=== PATIENT | male | born 1965 | race Caucasian/White ===

== ENCOUNTER 2021-04-16 08:05 | Observation (INO) | payer OTHER ==
[2021-04-16] VITALS (9 sets, daily range): BP systolic 130–156; BP diastolic 67–93
[~2021-04-16] VITALS: Ht 182.9 cm; Wt 89.4 kg
[~2021-04-16 08:05] MED LIST: CRESTOR10 MG PO
[2021-04-16] MEDS ORDERED: ASA81BEC PO (08:31)
[2021-04-16 08:47] LABS: HEMATOCRIT 45.4 % (42.0-52.0); HEMOGLOBIN 15.5 gm/dL (14.0-18.0); MCH 31.8 pg (26.0-34.0); MCHC 34.1 g/dL (28.0-37.0); MCV 93.1 fL (80.0-100.0); MPV 8.9 fl. (7.2-11.1); RBC 4.88 mil/uL (4.50-6.00); RDW-CV 13.1 % (10.5-14.5); WBC 5.1 thou/uL (4.0-11.0)
[2021-04-16 08:59] LABS: APTT 25.6 Seconds (25.0-31.3); PROTIME 10.5 Seconds (9.20-11.50)
[2021-04-16 09:22] LABS: ANION GAP 11 mmol/L (7-16); BUN 14 mg/dL (7-18); CALCIUM 8.9 mg/dL (8.5-10.1); CHLORIDE 102 mmol/L (98-107); CO2 26 mmol/L (21-32); CREATININE 1.2 mg/dL (0.6-1.3); GLUCOSE 98 mg/dL (70-99); POTASSIUM 4.2 mmol/L (3.5-5.1); SODIUM 139 mmol/L (136-145)
[2021-04-16 09:26] LABS: ALBUMIN 4.3 g/dL (3.4-5.0); ALKALINE PHOSPHATASE 54 U/L (46-116); CHOLESTEROL 151 mg/dL (<200); HDL CHOLESTEROL 50 mg/dL (>40); LDL CHOLESTEROL 80 mg/dL (<100); SERUM ASSESSMENT Clear; SGOT 25 U/L (15-37); SGPT 36 U/L (30-65); TOTAL BILIRUBIN 0.9 mg/dL (<0.1-1.0); TOTAL PROTEIN 7.3 g/dL (6.4-8.2); TRIGLYCERIDE 105 mg/dL (<150); VLDL 21 mg/dL (<40)
--- NOTE | 2021-04-16 11:45 | NUR ---
POST CATH TO 227 VIA BED TELEPHONE REPORT GIVEN PRIOR ARRIVAL PATIENT ORIENTED TO AND CALL LIGHT DENIES PAIN
--- NOTE | 2021-04-16 12:52 | EKG ---
[place] [address] ELECTROCARDIOGRAM REPORT Name: JOSEIGOR SABA Room: [address] M.R.#: [id number] Admission: 04/16/21 Attend Phys: Isaias Vega Discharge: Date of : 61 Date of Service: 04/16/21 0850 Report #: [id number] THIS REPORT FOR: //name// [facility] Test Date: 2021-04-16 Test Time: 08:50:34 Pat Name: IGOR GARCIA Department: Room: 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 04/16/21 1252 0850 0850 Ac Burgos MD, [facility] /EPI
--- NOTE | 2021-04-16 12:54 | EKG ---
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
[2021-04-17] VITALS: BP 134/83
[2021-04-17 04:14] VITALS: BP 136/89
[2021-04-17 04:28] LABS: HEMATOCRIT 45.6 % (42.0-52.0); HEMOGLOBIN 15.6 gm/dL (14.0-18.0); MCHC 34.1 g/dL (28.0-37.0); MCV 93.9 fL (80.0-100.0); MPV 9.3 fl. (7.2-11.1); RBC 4.86 mil/uL (4.50-6.00); RDW-CV 13.2 % (10.5-14.5); WBC 6.8 thou/uL (4.0-11.0)
[2021-04-17 04:45] LABS: ALBUMIN 4.1 g/dL (3.4-5.0); CALCIUM 8.9 mg/dL (8.5-10.1); CK-MB MASS 2.1 ng/mL (<0.5-3.6); CREATININE 1.3 mg/dL (0.6-1.3); POTASSIUM 3.9 mmol/L (3.5-5.1); TOTAL BILIRUBIN 0.9 mg/dL (<0.1-1.0); TOTAL PROTEIN 7.2 g/dL (6.4-8.2)
--- NOTE | 2021-04-17 08:08 | NUR ---
PT IS ABLE TO COMMUNICATE HIS NEEDS TO STAFF EFFECTIVELY. HE HAS DENIED THE NEED FOR PAIN MEDICATION UP TO THIS TIME. HE HAS DENIED ANY CHEST PAIN OVERNIGHT. RT GROIN CATH SITE DRESSING C/D/I. LIKELY DISCHARGE TODAY.
[2021-04-17] MEDS ORDERED: EFFIENT10 MG PO (08:48)
[2021-04-17] MEDS ORDERED: NITROGLYCERIN0.4 MG SUBLING (08:49)
[2021-04-17 09:00] VITALS: BP 146/79
[2021-04-17 09:49] VITALS: BP 136/89
--- NOTE | 2021-04-17 10:54 | NUR ---
0900- PT HAD BANDAID TO R GROIN,VERY SLIGHT BRUISE NOTED JUST OUTSIDE OF BANDAID.OTHERWISE CDI,PT DENIES PAIN.
--- NOTE | 2021-04-17 11:47 | EKG ---
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 : 1965 Requested By: Markus Feliciano Order Number: [id number] Reading MD: Ac Burgos Measurements Intervals [place] Rate: 62 P: 49 [place]: 180 QRS: 40 QRSD: 117 T: 51 QT: 432 QTc: 439 Interpretive Statements Sinus rhythm Borderline intraventricular conduction delay ST elevation, consider early repolarization Baseline wander in lead(s) V4 Compared to ECG 04/16/2021 11:28:18 Borderline intraventricular conduction delay now present ST (T wave) deviation still present Electronically Signed On 04-17-2021 11:47:39 CDT by Ac Burgos [email or web address] <ELECTRONICALLY SIGNED> By: Ac Burgos MD, [facility] 04/17/21 1147 3 3 Ac Burgos MD, [facility] /EPI
--- NOTE | 2021-04-17 15:22 | CARD ---
[address] [address] CARDIAC CATH REPORT Name: IGOR GARCIA Room: [address] Vandana Sandra#: [id number] Admission: 04/16/21 Attend Phys: Markus Feliciano MD, Discharge: 04/17/21 Date of : 61 Report #: [id number] THIS REPORT FOR: cc: Zach Reyes MD, Cabot L. MD Holkins, John M. 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 Indication Positive stress test Risk Factors Family History, Hypercholesterolemia Admission/Lab Medications/Medications given during procedure Aspirin, Glycoprotein IllbIlla Inhibitors, Thrombin Inhibitors, Platelet Aff. Inhib. Procedure Narrative The patient was brought electively to the Cardiac Catheterization Laboratory and was prepped and draped in a sterile manner. The right wrist was infiltrated with 2% Lidocaine subcutaneous anesthesia. IV conscious sedation was used throughout procedure with appropriate monitoring and was performed in the presence of a registered nurse who was an independent trained observer other than the physician performing the procedure. A 6Fr Boston sheath was inserted into the right femoral artery. Coronary [place] [address] CARDIAC CATH REPORT Name: IGOR GARCIA Room: [address] Vandana Sandra#: [id number] Admission: 04/16/21 Attend Phys: Markus Feliciano MD, Discharge: 04/17/21 Date of : 61 Report #: [id number] coronary diagnostic catheters. The right coronary system was accessed and visualized with a Diagnostic catheter. The left coronary system was accessed and visualized with a Diagnostic catheter. The left ventricle was accessed and visualized with a Diagnostic catheter. Left ventricular/Aortic Valve gradient assessed via catheter pullback. Pre-demployment femoral angiogram was performed . Closure device was deployed with a 6 Fr Angioseal. Intraoperative Conscious Sedation Sedation start time: 9:42 Case end Time: 10:29 Fentanyl 50.0 mcg Versed 3.0 mg Diagnostic Cath Left Main 0% narrowing LAD 30% proximal narrowing with 80% tubular mid vessel stenosis Circumflex 20% mid vessel narrowing Right Coronary Large dominant vessel with 30% mid vessel narrowing Left Ventriculography The left ventricle is normal in size with normal contractility. The left ventricular ejection fraction is estimated to be 60%. Left ventricular wall motion abnormalities are not present. There is no mitral insufficiency. Hemodynamics The aortic pressure is 149/67 mmHg with a mean of 98 mmHg. The left ventricular pressure is 140/2/14 mmHg with a mean of mmHg. The left ventricular end diastolic pressure is 13 mmHg. There was no gradient across the aortic valve upon pullback. PCI Technique Lesion Anticoagulation was achieved with Angiomax. Percutaneous coronary intervention was performed on the mid LAD artery segment. The lesion stenosis prior to intervention was 80% with JEANETH 3 flow. A 6Fr XB LAD 3.5 Guide Catheter was used to engage the left main ostium. A [employer] Interventional Guidewire was used to cross the lesion. BALLOON DILATION A Balloon catheter Trex RX 2.5x12 was inserted and inflated up to 10atm for 10seconds. Additional Inflation: 12atm for 11seconds. Additional Inflation: 15atm for 9seconds. [place] [address] CARDIAC CATH REPORT Name: IGOR GARCIA [address] [id number] Admission: 04/16/21 Attend Phys: Markus Feliciano MD, Discharge: 04/17/21 Date of : 61 Report #: [id number] STENT DEPLOYMENT A drug eluting stent [place] 2.75.30, 2.5x8 [place] was inserted and inflated up to 12atm for 12seconds. Additional Inflation: 15atm for 9seconds. POST STENT DEPLOYMENT BALLOON DILATION A Balloon catheter NC Trek 2.75x12 was inserted and inflated up to 12atm for 9seconds. Additional Inflation: 14atm for 7seconds. Additional Inflation: 16atm for 7seconds. 17atm for 11 seconds Final angiography reveals 0 % stenosis with JEANETH 3 flow. STENT DEPLOYMENT A stent was inserted and inflated up to 12atm for 12seconds. Conclusion 1. Significant coronary artery disease characterized by the following: A 30% proximal and 80% tubular mid LAD stenosis B 20% mid circumflex narrowing C dominant right coronary artery with 30% mid vessel narrowing 2. normal left-sided hemodynamic study 3. Normal left ventricular systolic function, estimated ejection fraction being 60% 4 successful PCI with deployment of sequential drug-eluting stents at the site of 80% tubular mid LAD stenosis with 0% residual narrowing and JEANETH-3 flow to the distal vessel Recommendations Cardiac Risk Reduction Program Aggressive Medical Therapy Medications Administered Aspirin (any) [place] [address] CARDIAC CATH REPORT Name: IGOR GARCIA [address]#: [id number] Admission: 04/16/21 Attend Phys: Markus Feliciano MD, Discharge: 04/17/21 Date of : 61 Report #: [id number] Diagnostic Cath Approved by: Markus Feliciano MD Date/Time: 04/17/2021 15:20:30 <ELECTRONICALLY SIGNED> By: Markus Feliciano MD, [facility] 04/17/21 1522 1522 1522Joheron Feliciano MD, [facility] /INF
--- NOTE | 2021-04-18 16:17 | D ---
[address] [address] DISCHARGE SUMMARY Name: IGOR GARCIA Room: [address] Vandana Sandra#: [id number] Admission: 04/16/21 Attend Phys: Markus Feliciano MD, Discharge: 04/17/21 Date of : 61 Report #: [id number] THIS REPORT FOR: cc: Zach Reyes MD, Cabot L. MD Holkins, John M. MD [facility] ~ cc: Amari Sierra MD [facility] DATE OF DISCHARGE: 04/17/2021 FINAL DISCHARGE DIAGNOSES: 1. Abnormal nuclear stress test. 2. Hypercholesterolemia. 3. Coronary artery disease. 4. Status post PCI with stenting of the mid LAD. PROCEDURES: 04/16/2021 -- left heart catheterization, left ventriculography, selective coronary arteriography, percutaneous coronary intervention with deployment of sequential drug-eluting stents at the site of 80% tubular mid LAD stenosis. HOSPITAL COURSE: The patient is a very pleasant and active 55-year-old male with some dyspnea on exertion, but no chest discomfort. He had a recently abnormal nuclear stress test with inducible anterolateral ischemia. His only major risk factors for coronary disease are positive family history of hypercholesterolemia. He underwent a cardiac catheterization on 04/16/2021 revealed 80% tubular mid LAD stenosis. There were no significant stenosis of the left main, circumflex or right coronary artery. I deployed one 2.75 x 30 mm [place] drug-eluting stent followed by 2.5 x 8 mm [place] just distal to that with 0% residual narrowing and JEANETH 3 flow in the distal vessel. The patient did well post-procedurally and ambulated in the hallways without difficulty. Laboratory on 04/17 revealed sodium 132, potassium 3.9, BUN 15, creatinine 1.3. Hemoglobin 15.6, white blood cell count 6800 with 142,000 platelets. He ambulated in the hallways without difficulty with good hemostasis at the right femoral site of catheterization. DISCHARGE MEDICATIONS: He was discharged to home on prasugrel, Effient 10 mg daily, p.r.n. sublingual nitroglycerin, Crestor 10 mg daily and enteric-coated aspirin 81 [place] [address] DISCHARGE SUMMARY Name: IGOR GARCIA Room: [address] Vandana Sandra#: [id number] Admission: 04/16/21 Attend Phys: Markus Feliciano MD, Discharge: 04/17/21 Date of : 61 Report #: [id number] He is scheduled to return to see Dr. Sierra in 3-4 weeks for followup. Therefore, the patient is discharged home in stable condition on the aforementioned medications with followup as described above. <ELECTRONICALLY SIGNED> By: Markus Feliciano MD, [facility] 04/18/21 1617 0825 0834Joheron Feliciano MD, [facility] /nt
== END 2021-04-17 09:55 | disposition home or self-care (01) ==
LOC: M.CL 08:05 → M.2W 10:53 → M.TBA-CV 10:53 → M.2W 11:56
PROVIDERS: ADMIT Internal Medicine; ATTEND Internal Medicine
DX: I25.10 Atherosclerotic heart disease of native coronary artery without angina pectoris (principal); R94.39 Abnormal result of other cardiovascular function study; E78.00 Pure hypercholesterolemia, unspecified; Z20.822 Contact with and (suspected) exposure to COVID-19; Z79.899 Other long term (current) drug therapy